=== PATIENT | male | born 1985 | race Two or more races ===

== ENCOUNTER 2025-05-13 09:49 | Inpatient (IN) | payer MEDICAID, OTHER ==
[~2025-05-13] VITALS: Ht 167.6 cm; Wt 81.6 kg
[2025-05-13] VITALS (45 sets, daily range): BP systolic 96–117; BP diastolic 54–73; TEMP 98.1–98.8; O2SAT 94–99
[2025-05-13] MEDS ORDERED: PROPOFOL 100 ML ONE ×2 (09:53→12:25)
[2025-05-13] MEDS ORDERED: ACET1TAB93 PO (10:04)
[2025-05-13] MEDS ORDERED: CEPH500C2 PO (10:04)
[2025-05-13] MEDS: PROPOFOL 100 ML IV PRN ×2 (10:05→12:51)
[2025-05-13] MEDS ORDERED: ENOXAPARIN SODIUM 40 MG/0.4 ML DISP.SYRIN SQ ONE (10:24)
[2025-05-13 10:27] LABS: PLATELET COUNT (AUTO) 162 K/uL (152-348); RED BLOOD CELL COUNT(AUTO) 5.68 MIL/uL (4.06-5.63); RED CELL DISTRIBUTION WIDTH 14.7 % (12.1-16.2); WHITE BLOOD COUNT (AUTO) 18.5 K/uL (3.6-10.2)
[2025-05-13] MEDS: ENOXAPARIN SODIUM 40 MG/0.4 ML DISP.SYRIN SQ SCH (10:29)
[2025-05-13] MEDS: IV NORMAL SALINE 1000 ML BAG IV ONE (10:31)
[2025-05-13 10:36] LABS: *BILIRUBIN,URIN NEGATIVE (NEGATIVE); *BLOOD, URINE 3+ (NEGATIVE); *CLARITY,URINE CLEAR (CLEAR); *COLOR,URINE YELLOW (YELLOW); *KETONES,URINE NEGATIVE (NEGATIVE); *PROTEIN,URINE 2+ (NEGATIVE); *UROBILINOGEN,URINE 0.2 E.U./dl (NORMAL); LEUKOCYTE ESTERASE ,URINE NEGATIVE (NEGATIVE); NITRITE, URINE NEGATIVE (NEGATIVE); UGLUCOSE NEGATIVE (NEGATIVE)
[2025-05-13 10:39] LABS: ETHANOL < 3 MG/DL (0-10)
[2025-05-13 10:40] LABS: ASPARTATE AMINOTRANSFERASE 61 U/L (15-37); CREATININE 1.3 mg/dL (0.6-1.3); SODIUM SERUM 138 mmol/L (136-145); TOTAL PROTEIN, SERUM 7.8 g/dL (6.4-8.2); UREA NITROGEN, BLOOD 14 mg/dL (7-18)
[2025-05-13 10:44] LABS: *AMPHETAMINE, URINE NEGATIVE (NEGATIVE); *BARBITURATE, URINE NEGATIVE (NEGATIVE); *BENZODIAZEPINE, URINE NEGATIVE (NEGATIVE); *CANNABINOID, URINE NEGATIVE (NEGATIVE); *COCCAINE, URINE NEGATIVE (NEGATIVE); *OPIATE, URINE NEGATIVE (NEGATIVE); *PHENCYCLIDINE SCREEN,URINE NEGATIVE (NEGATIVE); FENTANYL, URINE POSITIVE (NEGATIVE)
[2025-05-13 10:50] LABS: ABG BASE EXCESS -5.1 mmol/L (-2.0-3.0); ABG HCO3 21.3 mmol/L (21.0-28.0); ABG PCO2 44.9 mmHg (35.0-48.0); ABG PH 7.295 (7.350-7.450); ABG PO2 358.1 mmHg (83.0-108.0); ABG SITE RIGHT RADIAL; ABG TOTAL HEMOGLOBIN 14.4 G/dL (13.5-17.5); AaDO2 99.7 mmHg; FIO2 100.0 %; PEEP,BG 5.0 cmH20; SET RATE, BG 20.0; VT, ABG 500 mL
[2025-05-13 10:50] LABS: LACTIC ACID 2.8 mmol/L (0.4-2.0)
[2025-05-13] MEDS ORDERED: ALBUTEROL SULFATE 2.5 MG/3 ML NEBU ONE ×2 (10:56→11:03)
[2025-05-13] MEDS ORDERED: DEXTROSE 50% 50 ML DISP.SYRIN ONE (10:57)
[2025-05-13 10:58] LABS: SQUAMOUS EPITHELIAL CELL,UR FEW /HPF (NONE SEEN)
[2025-05-13] MEDS ORDERED: SODIUM BICARBONATE 8.4% 50 MEQ/50 ML DISP.SYRIN IV ONE (10:58)
[2025-05-13] MEDS ORDERED: INSULIN REGULAR, HUMAN 1000 UNIT/10 ML VIAL ONE (10:58)
[2025-05-13] MEDS: DEXTROSE 50% 50 ML DISP.SYRIN IV ONE (11:00)
[2025-05-13] MEDS: INSULIN REGULAR, HUMAN 1000 UNIT/10 ML VIAL IV ONE (11:00)
[2025-05-13] MEDS: ALBUTEROL SULFATE 2.5 MG/3 ML NEBU NEB ONE (11:10)
[2025-05-13] MEDS: SODIUM BICARBONATE 8.4% 50 MEQ/50 ML DISP.SYRIN IV ONE (11:13)
[2025-05-13] MEDS ORDERED: ACETAMINOPHEN 325 MG TABLET PO PRN (11:15)
[2025-05-13] MEDS ORDERED: DEXTROSE 50% 50 ML DISP.SYRIN IV PRN (11:15)
[2025-05-13] MEDS ORDERED: FENTANYL CITRATE 100 MCG/2 ML AMPUL ONE (11:26)
[2025-05-13] MEDS ORDERED: FENTANYL CITRATE/PF 1,000 MCG in IV NORMAL SALINE 80 ML IV PRN (11:30)
[2025-05-13] MEDS: FENTANYL CITRATE 100 MCG/2 ML AMPUL IV ONE (11:35)
[2025-05-13] MEDS: BLOOD SUGAR DIAGNOSTIC 1 EACH STRIP VI SCH (11:51)
[2025-05-13 12:07] LABS: CREATININE 1.3 mg/dL (0.6-1.3); SODIUM SERUM 144.0 mmol/L (136-145); UREA NITROGEN, BLOOD 13.0 mg/dL (7-18)
[2025-05-13] MEDS: IV NS 1000 ML 1,000 ML IV PRN (12:50)
[2025-05-13] MEDS: FENTANYL CITRATE/PF 1,000 MCG in IV NORMAL SALINE 80 ML IV PRN (12:52)
[2025-05-13] MEDS: ONDANSETRON 4 MG/2 ML VIAL IV PRN (13:05)
[2025-05-13 13:43] LABS: CREATININE 1.1 mg/dL (0.6-1.3); SODIUM SERUM 141.0 mmol/L (136-145); UREA NITROGEN, BLOOD 14.0 mg/dL (7-18)
[2025-05-13] MEDS: INSULIN REGULAR, HUMAN 1000 UNIT/10 ML VIAL SQ PRN (18:32)
[2025-05-13] MEDS ORDERED: METOPROLOL TARTRATE 5 MG/5 ML VIAL IVP PRN (19:00)
[2025-05-14] VITALS (32 sets, daily range): BP systolic 89–128; BP diastolic 53–98; TEMP 97.8–98.6; O2SAT 90–99
[2025-05-14 05:15] LABS: PLATELET COUNT (AUTO) 110 K/uL (152-348); RED BLOOD CELL COUNT(AUTO) 4.86 MIL/uL (4.06-5.63); RED CELL DISTRIBUTION WIDTH 15.1 % (12.1-16.2); WHITE BLOOD COUNT (AUTO) 12.0 K/uL (3.6-10.2)
[2025-05-14 05:23] LABS: CREATININE 0.9 mg/dL (0.6-1.3); SODIUM SERUM 142.0 mmol/L (136-145); UREA NITROGEN, BLOOD 11.0 mg/dL (7-18)
[2025-05-14] MEDS ORDERED: DOPamine IV DRIP 400 MG/250ML 250 ML IV PRN (05:30)
[2025-05-14 05:52] LABS: ABG BASE EXCESS 0.0 mmol/L (-2.0-3.0); ABG HCO3 22.9 mmol/L (21.0-28.0); ABG PCO2 31.9 mmHg (35.0-48.0); ABG PH 7.473 (7.350-7.450); ABG PO2 103.1 mmHg (83.0-108.0); ABG SITE RIGHT RADIAL; ABG TOTAL HEMOGLOBIN 13.6 G/dL (13.5-17.5); AaDO2 98.1 mmHg; FIO2 30.0 %; PEEP,BG 5.0 cmH20; SET RATE, BG 22.0; VT, ABG 500 mL
[2025-05-14] MEDS ORDERED: DC PROPOFOL ONCE EXTUBATED XX PRN (08:45)
[2025-05-14] MEDS: ENOXAPARIN SODIUM 40 MG/0.4 ML DISP.SYRIN SQ SCH (10:01)
[2025-05-14] MEDS ORDERED: IOHEXOL 300MG/ML 100 ML INFUS..BTL ONE (15:52)
[2025-05-15] VITALS (14 sets, daily range): BP systolic 109–123; BP diastolic 64–84; TEMP 97.6–98.8; O2SAT 93–97
[2025-05-15 10:19] LABS: ABG BASE EXCESS 0.4 mmol/L (-2.0-3.0); ABG HCO3 24.8 mmol/L (21.0-28.0); ABG PCO2 39.4 mmHg (35.0-48.0); ABG PH 7.417 (7.350-7.450); ABG PO2 72.1 mmHg (83.0-108.0); ABG SITE RIGHT RADIAL; ABG TOTAL HEMOGLOBIN 15.3 G/dL (13.5-17.5); AaDO2 94.8 mmHg; FIO2 21.0 %; FLOW, BLOOD GAS 0.00 L/min (0.00-30.00)
== END 2025-05-15 12:25 | disposition home or self-care (01) | DRG 815 ==
LOC: ER 09:49 → CCU 12:16
PROVIDERS: ADMIT Nurse Practitioner Acute Care; ATTEND Nurse Practitioner Acute Care
PROC: 5A1945Z Respiratory Ventilation, 24-96 Consecutive Hours (ICD-10-PCS; principal; 2025-05-13)
DX: T88.3XXA Malignant hyperthermia due to anesthesia, initial encounter (principal); J96.91 Respiratory failure, unspecified with hypoxia; G92.8 Other toxic encephalopathy; N17.9 Acute kidney failure, unspecified; J95.860 Postprocedural hematoma of a respiratory system organ or structure following a respiratory system procedure; I10 Essential (primary) hypertension; E87.29 Other acidosis; E87.5 Hyperkalemia; R00.1 Bradycardia, unspecified; T41.1X5A Adverse effect of intravenous anesthetics, initial encounter; Y92.530 Ambulatory surgery center as the place of occurrence of the external cause; D72.829 Elevated white blood cell count, unspecified; Z53.09 Procedure and treatment not carried out because of other contraindication; R79.89 Other specified abnormal findings of blood chemistry; R74.01 Elevation of levels of liver transaminase levels
CPT/HCPCS: 36415; 36600; 70487; 71045; 82803; 83605; 83735; 84100; 84484; 85025; 85730; 87040; 87086; 93307; 94002; 94003; 94760; A4606; A4663; G0378; G0480; J1650; J1815; J2405; J3010; J3490; J7040; Q9967